=== PATIENT | female | born 1960 | race Asian ===

== ENCOUNTER 2018-05-13 06:01 | Day surgery (SDC) | payer OTHER ==
[2018-05-13] MEDS ORDERED: ALBUTEROL 0.083% (NEB) 2.5 MG/3 ML AMP HHN (08:00)
[2018-05-13] MEDS ORDERED: FENTAnyl 50 MCG/ML VIAL IV (08:00)
[2018-05-13] MEDS ORDERED: HYDROmorphONE 1 MG/5 ML IV SYRINGE IV ×2 (08:00)
[2018-05-13] MEDS ORDERED: METOCLOPRAMIDE 10 MG INJ IV (08:00)
[2018-05-13] MEDS ORDERED: OXYCODONE/ACETAMINOPHEN (5/325) TAB PO (08:00)
[2018-05-13] MEDS ORDERED: MEPERIDINE 25 MG INJ IV (08:00)
[2018-05-13] MEDS ORDERED: DIPHENHYDRAMINE 50 MG INJ IV (08:00)
[2018-05-13] MEDS ORDERED: FENTAnyl 50 MCG/ML VIAL (08:20)
[2018-05-13] MEDS ORDERED: CEFAZOLIN 1 GM INJ (08:33)
[2018-05-13] MEDS ORDERED: SUGAMMADEX SODIUM 200 MG/2 ML VIAL IV (08:33)
[2018-05-13] MEDS ORDERED: SUCCINYLCHOLINE CHLORIDE 100 MG/5 ML SYG IV (08:33)
[2018-05-13] MEDS ORDERED: ROCURONIUM 50 MG INJ (08:33)
[2018-05-13] MEDS ORDERED: LIDOCAINE 100 MG SYRINGE (08:33)
[2018-05-13] MEDS ORDERED: PROPOFOL 20 ML (08:33)
[2018-05-13] MEDS: FENTAnyl 50 MCG/ML VIAL IV ×2 (08:59→09:10)
[2018-05-13] MEDS ORDERED: KETOROLAC 30 MG INJ IV (09:00)
[2018-05-13] MEDS ORDERED: IBUPROFEN 600 MG TAB PO (09:00)
[2018-05-13] MEDS: HYDROmorphONE 1 MG/5 ML IV SYRINGE IV ×2 (09:00→09:10)
[2018-05-13] MEDS: ONDANSETRON 4 MG INJ IV (09:00)
== END 2018-05-13 10:25 | disposition home or self-care (01) ==
LOC: SDS 06:01
DX: R93.8 Abnormal findings on diagnostic imaging of other specified body structures (principal); N95.9 Unspecified menopausal and perimenopausal disorder
CPT/HCPCS: 58120; 71045; 88305; 93005

== ENCOUNTER 2019-03-10 06:09 | Day surgery (SDC) | payer OTHER ==
[2019-03-10] MEDS ORDERED: PROPOFOL 20 ML (07:25)
[2019-03-10] MEDS ORDERED: PROPOFOL 200 MG INJ (07:25)
[2019-03-10] MEDS ORDERED: FENTAnyl 50 MCG/ML VIAL (07:25)
== END 2019-03-10 13:25 | disposition home or self-care (01) ==
LOC: GIL 06:09
DX: Z12.11 Encounter for screening for malignant neoplasm of colon (principal); K64.8 Other hemorrhoids; E03.9 Hypothyroidism, unspecified
CPT/HCPCS: 45378